=== PATIENT | male | born 1950 | race Two or more races ===

== ENCOUNTER 2023-12-30 08:11 | Outpatient (RCR) | payer OTHER, SELFPAY ==
--- NOTE | 2023-12-30 09:02 | PT.OIERPT ---
PT OP Initial Eval Patient Information Outpatient Physical Therapy Treatment Date: 12/30/23 Visit Reasons: Left shoulder pain Medical Diagnosis: M75.122 Start of Care: 12/30/23 Date of Onset: July 2023 Smoking Status Smoking Status: Never smoker Initial Assessment Subjective: Pt is 73 yr old polish speaking male who fell from a ladder in July and reports L shoulder pain and difficulty reaching OH. Certain movements hurt more than others like reaching OH and lifting things. PLOF: prior to the fall pt had full use of L shoulder with HH chores and ADL's. PMH: HTN Imaging: MRI of L shoulder 4 cm full-thickness rotator cuff tear, Superior labral tears Objective: L shoulder AROM: Strength: FF: 110 deg 3-/5 Abd: 90 deg 3-/5 ER: 75 deg 3-/5 Drop arm: positive [place]: positive Assessment: Pt presents with decreased AROM and strength and pain consistent with MRI that reveals large RC tear. Pt not likely going to benefit from skilled therapy and has poor rehab potential to meet goals. PT recommends orthopedic consultation. Short Term and Napper Grinder Goals Eval and D/C Treatment Plan Eval and D/C Certification Dates: 12/30/23 to 01/28/24 Procedure Charges OP PT Eval Mod Complex 30 minutes: Yes
== END 2024-01-09 23:59 | disposition home or self-care (01) ==
LOC: CPTX 08:11
PROVIDERS: PCP Nurse Practitioner Family; Referring Provider Nurse Practitioner Family; Visit Provider Nurse Practitioner Family
DX: M25.512 Pain in left shoulder (principal); M75.122 Complete rotator cuff tear or rupture of left shoulder, not specified as traumatic; I10 Essential (primary) hypertension
CPT/HCPCS: 97162

== ENCOUNTER → 2024-03-15 | Outpatient (CLI) | payer OTHER, SELFPAY ==
--- NOTE | 2024-03-15 13:48 | XR_ITS ---
Examination: PA lateral chest 2 views TECHNIQUE: Upright PA lateral chest 2 views Exam date and time: March 15, 2024 1340 hours INDICATIONS: Preop shoulder surgery FINDINGS: Minor scarring at the left base Normal heart size The lungs are clear IMPRESSION: No active disease
== END | disposition home or self-care (01) ==
LOC: CDIM 13:30
PROVIDERS: PCP Nurse Practitioner Family; Referring Provider Nurse Practitioner Family; Visit Provider Nurse Practitioner Family
DX: I10 Essential (primary) hypertension (principal)
CPT/HCPCS: 71046

== ENCOUNTER → 2024-04-23 | Outpatient (CLI) | payer OTHER, SELFPAY ==
--- NOTE | 2024-04-23 12:30 | XR_ITS ---
Examination: MRI brain without intravenous contrast. Date and time of exam: April 23, 2024 at 1250 hrs. Indications: Increasing memory loss 5 years Technique: Multiple axial and sagittal images of the brain obtained. Siemens high-resolution 1.5 Marva short bore scanners utilized. Sagittal sections, T1-weighted, TR 500, TE 14, are performed. Axial sections proton-density and T2-weighted have been obtained. Inversion recovery axial images, TR 9, 260, TE 111, TI 2500. Diffusion weighted images, axial sections, TR 4800, TE 128, B value 1000 Axial sections, ADC map, TR 4800, TE 128 Findings: Enlargement of the sella turcica is not present. The optic chiasm and infundibular are not remarkable. Prepontine and interpeduncular cisterns are not enlarged. There is no localized enlargement of the medulla or alicia. Fourth ventricle and cerebellar tonsils appear normal in position. No subacute area of hemorrhage density is seen. Mass in the cerebellopontine angle region is not evident. Globes symmetrical. Orbital musculature including medial lateral rectus muscles do not exhibit abnormality. Diffusion-weighted images demonstrate no focus of restricted diffusion. Increased white matter signal prominent Mass effect upon the ventricular system is not identified. Impression: Negative for acute hemorrhage mass effect or midline shift Prominent chronic microvascular white matter change No acute infarct
== END | disposition home or self-care (01) ==
LOC: SMRI 12:21
PROVIDERS: Referring Provider Nurse Practitioner Family; Visit Provider Nurse Practitioner Family
DX: R90.82 White matter disease, unspecified (principal)
CPT/HCPCS: 70551

== ENCOUNTER 2024-05-20 12:15 | Day surgery (SDC) | payer OTHER, SELFPAY ==
--- NOTE | 2024-05-19 11:55 | EKG_ITS ---
[facility] Test Date: 2024-05-19 Pat Name: JOSE BASURTO Department: Room: - Gender: Male Vice President Planning: DELON : 1950 Requested By: Ross Staley Order Number: [id number] Reading MD: Ross Staley Measurements Intervals [place] Rate: 60 P: 67 DE: 184 QRS: -11 QRSD: 102 T: 19 QT: 427 QTc: 427 Interpretive Statements SINUS RHYTHM No previous ECG available for comparison /store/S0/[id number]
[2024-05-19 12:05] VITALS: BMI 29.1
[2024-05-19 13:03] LABS: Basophils % (Auto) 0 % (0-2.5); Eosinophils % (Auto) 0 % (0-10); Hematocrit 47.3 % (41.0-53.0); Hemoglobin 16.7 g/dL (13.5-16.0); Immature Granulocytes % (Auto) 1 % (0-0); Immature Granulocytes Auto 0.04 Thou/mm3 (0.00-0.00); Lymphocytes # (Auto) 2.2 Thou/mm3 (1.0-4.8); Lymphocytes % (Auto) 27 % (10-50); Mean Corpuscular HGB Conc 35.3 g/dl (31.0-37.0); Mean Corpuscular Volume 85 fL (80-100); Monocytes # (Auto) 0.7 Thou/mm3 (0.0-0.8); Monocytes % (Auto) 9 % (0-12); Neutrophils # (Auto) 5.2 Thou/mm3 (1.8-7.7); Neutrophils % (Auto) 63 % (37-80); Nucleated Red Blood Cell % 0 /100 WBC (0); Platelet Count 220 Thou/mm3 (140-440); Red Blood Count 5.56 Miln/mm3 (4.50-5.90); White Blood Count 8.2 Thou/mm3 (3.8-10.6)
[2024-05-19 13:17] LABS: Prothrombin Time 11.4 Seconds (9.0-12.2)
[2024-05-19 13:18] LABS: Alanine Aminotransferase 26 U/L (10-49); Albumin, Serum 4.1 gm/dL (3.4-4.8); Albumin/Globulin Ratio 1.4 (1.2-2.2); Alkaline Phosphatase 85 U/L (46-116); Anion Gap 7 (7-16); Aspartate Amino Transferase 30 U/L (0-34); BUN/Creatinine Ratio 15 Ratio (12-20); Bilirubin,Total 1.3 mg/dL (0.3-1.2); Blood Urea Nitrogen 18 mg/dL (9-23); Calcium 9.4 mg/dL (8.3-10.6); Calcium (Corrected) 9.4 mg/dL (8.5-10.1); Carbon Dioxide 26.7 mMol/L (20.0-31.0); Chloride 108 mMol/L (98-107); Creatinine (Component) 1.2 mg/dL (0.6-1.3); Estimated Creatinine Clearance 52.6 mL/min (>60); Glucose 92 mg/dL (74-106); Osmolality,Calculated 285 (275-295); Potassium 3.9 mMol/L (3.4-5.1); Sodium 142 mMol/L (136-145); Total Protein 7.1 gm/dL (5.7-8.2); eGFR > 60 See Note
--- NOTE | 2024-05-19 13:56 | SUR.PREOP ---
Pt notified to come in at 1230 tomorrow for surgery.
--- NOTE | 2024-05-19 14:04 | ESHP_ITS ---
RE: JOSE BASURTO : 1950 DATE OF ADMISSION: 05/20/2024 HISTORY OF PRESENT ILLNESS: The patient came to my office on 05/19/2024 for detailed preoperative and physical examination. HISTORY OF PRESENTING COMPLAINT: The patient presents to me with history of pain in the left shoulder. The pain is going on for a long period of time, but the last 6 months also is extremely painful. The patient is unable to sleep. It is affecting his routine daily activities and activities of daily living. The intensity of pain is graded 8-9/10. The patient is unable to raise his left arm above the shoulder level. PAST MEDICAL HISTORY: No history of diabetes mellitus, high blood pressure, asthma, seizure, chest pain, myocardial infarction or bleeding disorder. PAST SURGICAL HISTORY: Nil. DRUG HISTORY: 1. Losartan. 2. Hydrochlorothiazide. ALLERGIES: NIL KNOWN. FAMILY HISTORY AND SOCIAL HISTORY: The patient denies smoking and drinking and is . PHYSICAL EXAMINATION: GENERAL: Normal built person. VITAL SIGNS: Pulse 78 per minute. Blood pressure 128/76. NECK: Soft, supple. No masses felt. Trachea is centrally placed. CARDIOVASCULAR SYSTEM: First and second heart sounds normal. No murmur heard. LUNGS: Bilateral vesicular breath sounds. CHEST: Clear. ABDOMEN: Soft. No masses felt. Bowel sounds present. EXTREMITIES: Left shoulder examination reveals no wasting or deformity. There is 2+ tenderness at AC joint. Active range of motion is 0-80 degrees of abduction and 0-90 degrees of forward flexion. Beyond that up to 130 degrees of abduction and forward flexion is possible, but with too much pain. Internal rotation is severely restricted. The patient has weak fist and nutrition coordinator. 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 ASSESSMENT AND PLAN: The diagnoses and prognoses were explained to the patient in detail. With the help of shoulder model, it was explained. The surgical procedure was explained in detail. Risks with anesthesia were explained and that includes, but not limited to reaction to anesthetic agents, cardiac arrest and rarely it might be fatal. Risks with operation includes infection and if that happens, the patient may need further surgical pressure. Other risks include delayed healing, wound dehiscence, etc. No guarantees given regarding outcome of the procedure and/or relief of symptoms. Indeed, physical therapy is a very important component for successful outcome of rotator cuff repair. After discussing at length the risks, benefits, limitations, and realistic outcome, the patient wanted to proceed with surgery. DT: 12:46:09 TT: 14:02:00 Ref: [id number] - TID: [id number]
[2024-05-20] VITALS (8 sets, daily range): BP systolic 127–140; BP diastolic 94–108; PULSE 63–76; RESP 13–21; TEMP 36.4–36.7; O2SAT 95–97; BMI 28.7
[2024-05-20] MEDS: RINGERS LACTATED 1000 ML 1,000 ML 20 ML IV (13:11)
--- NOTE | 2024-05-20 15:53 | PD.SUROPNT ---
Date of Procedure 05/20/24 Pre Op Diagnosis 1. Left rotator cuff tear 2. Left shoulder impingement syndrome Post Op Diagnosis Same Procedure 1. Excision lateral end of the clavicle 2 excision coracoacromial ligament 3 acromioplasty Are 4 repair of rotator cuff 5 manipulation under anesthesia Findings Patient had significant DJD at AC joint. There is osteophytes at acromial process. The rotator cuff had a small tear. Procedure Description The patient was given general endotracheal anesthesia. Once satisfactory anesthesia was achieved patient was put in about 45?? sitting position with sandbag underneath the left shoulder blade. The part was thoroughly prepped and draped. A skin incision was made at the AC joint extending proximally towards the neck for a half inches and distally towards the arm for about couple of inches. Deeper dissection was carried out. Bleeding vessels were electrocoagulated as and when encountered. The soft tissue was reflected. Following that AC joint was exposed and AC joint was exposed. The deltoid muscle was reflected from the anterior and lateral aspect of the acromial process. There are 2 mm anterior osteophytes and volume anterolateral osteophytes present. Following that a periosteal elevator was placed underneath the lateral end of the clavicle and lateral 3-4 mm was excised. The coracoacromial ligament was removed. Anterior 3 mm of acromion process and lateral 2 mm of acromion process was then excised with the help of saw With the help of curved osteotome the undersurface of the Acromial processes was chiseled out. That made more room between the superior surface of the head of the humerus and undersurface of the acromial process. Following that the rotator cuff was inspected. It revealed an oval tear, however most of the fibers were attached to the greater tuberosity. Wound was irrigated with antibiotic solution every 4-5 minutes. The left shoulder was manipulated at this time. Full range of abduction and full range of forward flexion was achieved. The rotator cuff tear was repaired with 2-0 Vicryl. 2 drill holes were made on the acromial process and deltoid muscle was stitched back to it. Some reinforcement sutures were placed. The subcutaneous tissue was then closed with the help of 2-0 Vicryl and 3-0 Vicryl in layers. The skin was closed with xenia. After cleaning the wound with hydrogel proximal solution and sterile dressing was applied. Patient was taken to the recovery room in good condition. Estimated blood loss 20 mL. Prognosis in this case is good. Anesthesia GETA and other Pathology / specimen None Estimated Blood Loss 20 Surgeon Ross Webber MD Surgical Staff Operation Date: 05/20/24 14:45 Case Staff Anesthesiologist: Kole Sheridan RNfire safety director: Merari Reddy
--- NOTE | 2024-05-20 16:29 | SUR.PHASEI ---
1604: Pt received in [facility] via [place]. Report from William PERRY and Dr. Sheridan. Pt groggy. Easily aroused with eye opening then drifts back to sleep. Resp even, unlabored. VS stable. Dressing to left shoulder dry, clean, intact. Left arm in arm sling. Good radial pulse. No c/o pain. 1629: Pt resting with no complaints voiced. Resp even, unlabored. VS stable. Dressing remains dry, clean, intact. Right radial pulse strong, regular. No c/o pain.
--- NOTE | 2024-05-20 16:54 | SUR.PHASEII ---
1640: Pt more awake, alert. VS stable. Dressing remains dry, clean, intact. Left radial pulse strong, regular. Pt wiggles fingers with no difficulty. Denies pain.
--- NOTE | 2024-05-20 17:38 | SUR.PHASEII ---
1700: Pt fully awake, oriented x3. VS stable. Dressing unchanged. Denies pain. Sitting up tolerating po fluids with no difficulty swallowing and no n/v. 1722: Pt dressed and assisted to transport chair. Ambulation steady. Pt requested son interpret for him. Both stated understanding of discharge instructions. Pt discharged from [facility] in stable condition.
--- NOTE | 2024-05-24 16:37 | ESPR_ITS ---
Documentation for date of: 05/24/24 POST ANESTHESIA NOTE: Patient had general LMA anesthesia and L interscalene nerve block for L rotator cuff surgery yesterday. Pre-op, there was cardiology records available in chart, which showed patient having dyspnea on exertion and had stress test that showed large mild reversible defect consistent with ischemia and he reported having follow up with his animal cruelty investigator after the surgery. I discussed this with the surgeon and also called and spoke with his animal cruelty investigator on the phone, who reviewed his chart while on the phone and cleared him for the surgery. This was discussed with the surgeon and the patient with his family visitor present and everyone agreed to proceed. I suggested to him to be sure to follow up with his animal cruelty investigator post op. He denied any chest pain or dyspnea on my visit pre-op. He did well intra-op and in PACU and his vitals were well maintained. I just called and spoke with him on the phone via pump room operator and he denied any problems from anesthesia. Kole Sheridan MD Anesthesia Progress Note Progress Note Most recent Vital Signs: Last Vital Signs Temp 98.0 F 05/20/24 17:05 Pulse 74 05/20/24 17:05 Resp 15 05/20/24 17:05 BP 130/95 H 05/20/24 17:05 Pulse Ox 96 05/20/24 17:05
== END 2024-05-20 17:22 | disposition home or self-care (01) ==
LOC: S2EX 12:22
PROVIDERS: Anesthesiology; PCP Family Medicine; Referring Provider Orthopaedic Surgery; Visit Provider Orthopaedic Surgery
PROC: (CPT 23412; principal; 2024-05-20 14:45)
DX: M75.102 Unspecified rotator cuff tear or rupture of left shoulder, not specified as traumatic (principal); M75.42 Impingement syndrome of left shoulder; Z01.810 Encounter for preprocedural cardiovascular examination
CPT/HCPCS: 23412; 23130; 23120; 36415; 80053; 85025; 85610; 85730; 93005; A4217; A4649; J1100; J1580; J2250; J2405; J2704; J2795; J3010; J3490; J7030; J7120

== ENCOUNTER 2024-06-28 07:30 | Day surgery (SDC) | payer OTHER, SELFPAY ==
[2024-06-27 10:43] VITALS: BMI 29.7
[2024-06-28] VITALS (13 sets, daily range): BP systolic 99–169; BP diastolic 74–112; PULSE 58–72; RESP 13–20; TEMP 36.2–36.7; O2SAT 92–96; BMI 28.9
[2024-06-28] MEDS: RINGERS LACTATED 1000 ML 1,000 ML 20 ML IV (09:07)
[2024-06-28] MEDS: fentaNYL CIT INJ 50 mCg/ML AMP 2ML (ASD USE ONLY) IV (09:28)
[2024-06-28] MEDS: MIDAZOLAM INJ 1 MG/ML VIAL 2 ML (ASD USE ONLY) 2 MG IV ×2 (09:29→09:37)
== END 2024-06-28 10:20 | disposition home or self-care (01) ==
PROVIDERS: PCP Family Medicine; Referring Provider Internal Medicine Gastroenterology; Visit Provider Internal Medicine Gastroenterology
PROC: 0DBE8ZX Excision of Large Intestine, Via Natural or Artificial Opening Endoscopic, Diagnostic (ICD-10-PCS; CPT 45380; principal; 2024-06-28 07:30)
DX: K63.5 Polyp of colon (principal); Z12.11 Encounter for screening for malignant neoplasm of colon; K64.1 Second degree hemorrhoids; K57.30 Diverticulosis of large intestine without perforation or abscess without bleeding
CPT/HCPCS: 45385; 45380; A4217; J2250; J3010; J7120

== ENCOUNTER 2024-07-11 08:49 | Outpatient (RCR) | payer OTHER, SELFPAY ==
--- NOTE | 2024-07-11 09:17 | PT.OIERPT ---
PT OP Initial Eval Patient Information Outpatient Physical Therapy Treatment Date: 07/11/24 Visit Reasons: lEFT SHOULDER ROTATR CUFF Medical Diagnosis: M75.122 Treatment Dx #1: Dec L shoulder ROM Treatment Dx #2: Dec L shoulder strength Start of Care: 07/11/24 Date of Onset: 05/20/24 DOS Smoking Status Smoking Status: Never smoker Initial Assessment Subjective: Pt is 74 yr old [place] island[place] speaking male s/p L RCR and reports low pain but weakness with lifting things. He reports he is doing HH chores ok unless he lifts things or reaches OH. PLOF: pt had full use of L shoulder with ADL's. PMH: HTN Pt goal: more strength to lift things, ROM L shoulder Objective: L shoulder AROM: FF: 130 deg Abd: 130 deg ER: 80 deg HBB: L2 Strength: 3+/5 isometric with light pressure into FF and abduction Assessment: Pt presentation consistent with post op RCR with decreased ROM, strength and function with reaching. Pt has moderate tissue irritability with PROM today and requires skilled therapy in order to decrease pain and improve ROM and strength and has fair rehab potential. Eval followed by HEP. Short Term and Half-Way Goals 1. Ind with HEP 2. Improved AROM of R shoulder to at least 145 deg FF and abduction, ER to 90 deg 3. Pt will reach OH x10 in order to reach tall cabinets.? 4. Improved strength to lift a plate to the cabinet Treatment Plan ? 1. Manual therapy ? 2. Therex ? 3. Modalities as indicated, moist heat, ice, estim ? Frequency and Duration: 2x a week for 8 weeks Certification Dates: 07/11/24 to 10/11/24 Procedure Charges OP PT Eval Mod Complex 30 minutes: Yes
== END 2024-08-08 23:59 | disposition home or self-care (01) ==
LOC: CPTX 08:49
PROVIDERS: PCP Orthopaedic Surgery; Referring Provider Orthopaedic Surgery; Visit Provider Orthopaedic Surgery
DX: M25.512 Pain in left shoulder (principal); R53.1 Weakness; Z98.890 Other specified postprocedural states; I10 Essential (primary) hypertension
CPT/HCPCS: 97162